=== PATIENT | female | born 1965 | race African-American/Black ===

== ENCOUNTER 2016-10-17 22:18 | Emergency (ER) | payer SELFPAY ==
[2016-10-17 22:51] VITALS: BP 115/79
--- NOTE | 2016-10-17 23:48 | Emergency Department Report ---
ED Back Pain/Injury HPI - General Chief Complaint: Back Pain/Injury Stated Complaint: BACK/LEG PAIN Time Seen by Provider: 10/17/16 23:29 Source: patient Limitations: No Limitations - History of Present Illness Initial Comments: 51-year-old female no significant past medical history presents with complaint of 2-3 weeks of lower back pain radiating down left buttock. Pain is intermittent pain currently as 6 out of 10 with with walking. Patient denies any trauma no nausea no vomiting. No abdominal pain. Denies any saddle paresthesias no loss of bladder or bowel continence. Denies any trauma whatsoever recently. Patient is fully ambulatory states that she is walking she feels pain radiating from her lower back and buttock. Denies any urinary symptoms whatsoever no fevers no chills no dysuria no hematuria MD Complaint: back pain Onset/Timin -: week(s) Place: home Radiation: buttocks, left leg Severity: moderate Severity scale (0 -10): 7 Quality: aching Consistency: intermittent Improves With: immobilization Worsens With: movement, walking Context: while lifting, turning/twisting - Related Data Previous Rx's Medication Instructions Recorded Last Taken Type Cyclobenzaprine [Flexeril] 10 mg PO TID PRN #15 tablet 10/18/16 Unknown Rx Naproxen [Naprosyn TAB] 500 mg PO BID PRN #30 tablet 10/18/16 Unknown Rx Allergies Allergy/AdvReac Type Severity Reaction Status Date / Time No Known Allergies Allergy Verified 02/11/16 21:54 ED Review of Systems ROS: Stated complaint: BACK/LEG PAIN Other details as noted in HPI Constitutional: denies: chills, fever Eyes: denies: eye pain, eye discharge, vision change ENT: denies: ear pain, throat pain Respiratory: denies: cough, shortness of breath, wheezing Cardiovascular: denies: chest pain, palpitations Endocrine: no symptoms reported Gastrointestinal: denies: abdominal pain, nausea, diarrhea Genitourinary: denies: urgency, dysuria, discharge Musculoskeletal: back pain. denies: joint swelling, arthralgia Skin: denies: rash, lesions Neurological: denies: headache, weakness, paresthesias Psychiatric: denies: anxiety, depression Hematological/Lymphatic: denies: easy bleeding, easy bruising ED Past Medical Hx - Past Medical History Previous Medical History?: Yes Additional medical history: Rheumatic Fever as a child. No cardiac hx - Surgical History Additional Surgical History: x 3, Tummy Tuck - Social History Smoking Status: Unknown if ever smoked - Medications Home Medications: Home Medications Medication Instructions Recorded Confirmed Last Taken Type Cyclobenzaprine [Flexeril] 10 mg PO TID PRN #15 tablet 10/18/16 Unknown Rx Naproxen [Naprosyn TAB] 500 mg PO BID PRN #30 tablet 10/18/16 Unknown Rx ED Physical Exam - General Limitations: No Limitations General appearance: alert, in no apparent distress - Head Head exam: Present: atraumatic, normocephalic - Eye Eye exam: Present: normal appearance, PERRL, EOMI - ENT ENT exam: Present: mucous membranes moist - Neck Neck exam: Present: normal inspection - Respiratory Respiratory exam: Present: normal lung sounds bilaterally. Absent: respiratory distress - Cardiovascular Cardiovascular Exam: Present: regular rate, normal rhythm. Absent: systolic murmur, diastolic murmur, rubs, gallop - GI/Abdominal GI/Abdominal exam: Present: soft, normal bowel sounds - Extremities Exam Extremities exam: Present: normal inspection - Back Exam Back exam: Present: normal inspection - Expanded Back Exam Expanded Back exam: Sciatic Notch Tenderness: Left, Positive Straight Leg Raise: Left ( at 30 degrees) - Neurological Exam Neurological exam: Present: alert, oriented X3, CN II-XII intact, normal gait - Expanded Neurological Exam Expanded Patient oriented to: Present: person, place, time Cerebellar function: Finger to Nose: Normal, Heel to Ibanez: Normal, Romberg: Normal Sensory exam: Upper Extremity Light Touch: Normal, Lower Extremity Light Touch: Normal Motor strength exam: RUE: 5, LUE: 5, RLE: 5, LLE: 5 DTR: knee (R): 3+, knee (L): 3+, ankle (R): 3+, ankle (L): 3+ Best Eye Response (Sushil): (4) open spontaneously Best Motor Response (Hartley): (6) obeys commands Best Verbal Response (Sushil): (5) oriented Sushil Total: 15 - Psychiatric Psychiatric exam: Present: normal affect, normal mood - Skin Skin exam: Present: warm, dry, intact, normal color. Absent: rash ED Course Vital Signs 10/17/16 22:45 Temperature 98.5 F Pulse Rate 78 Respiratory 18 Rate Blood Pressure 115/79 O2 Sat by Pulse 97 Oximetry ED Medical Decision Making - Medical Decision Making A/P: Sciatica left side 1-patient has no signs of cord compression is ambulatory strength 5 out of 5 lower extremities reflexes intact distal sensation is intact no saddle paresthesias no loss of bladder or bowel control. 2-x-ray shows no bony deformity 3-naproxen and Flexeril when necessary 4-follow-up with orthopedics and primary care Critical care attestation.: If time is entered above; I have spent that time in minutes in the direct care of this critically ill patient, excluding procedure time. ED Disposition Clinical Impression: Sciatica Qualifiers: Laterality: left Qualified Code(s): M54.32 - Sciatica, left side Disposition: DISCHARGED TO HOME OR SELFCARE Is pt being admited?: No Does the pt Need Aspirin: No Condition: Stable Instructions: Sciatica (ED), Lumbar Radiculopathy (ED), Piriformis Syndrome (ED ) Prescriptions: Cyclobenzaprine [Flexeril] 10 mg PO TID PRN #15 tablet PRN Reason: Muscle Spasm Naproxen [Naprosyn TAB] 500 mg PO BID PRN #30 tablet PRN Reason: Pain Referrals: PRIMARY CARE, [Primary Care Provider] - 3-5 Days SOPHY CANTU MD [Staff Physician] - 3-5 Days HELEN GARRIDO MD [Staff Physician] - 3-5 Days Forms: Accompanied Note, Work/School Release Form(ED) Time of Disposition: 01:55
--- NOTE | 2016-10-18 00:36 | XRay Report ---
FINAL REPORT PROCEDURE: XR SPINE LUMBOSACRAL 2-3V TECHNIQUE: Lumbar spine radiographs, including AP, lateral, and lumbosacral spot views. CPT 22657 HISTORY: lower back pain COMPARISON: No prior studies are available for comparison. FINDINGS: Alignment: Normal. Vertebral body heights/Disk spaces: Normal. Fracture(s): None. Facets: Normal. Bone mineralization: Normal. IMPRESSION: Normal Examination.
[2016-10-18] MEDS ORDERED: TORADOL IM ONE (01:09)
[2016-10-18 01:49] LABS: Bilirubin,Urine NEG (Negative); Blood,Urine SM (Negative); Ketones,Urine NEG (Negative); Leukocyte Esterase,Urine SM (Negative); Mucus,Urine FEW /HPF; Nitrite,Urine NEG (Negative); Protein,Urine <15 mg/dL mg/dL (Negative); Urobilinogen,Urine < 2.0 mg/dL (<2.0)
== END 2016-10-18 02:19 | disposition home or self-care (01) ==
LOC: ED 22:18
DX: M54.32 Sciatica, left side (principal)
CPT/HCPCS: 72100; 81001; 96372; 99283; J1885

== ENCOUNTER 2016-11-23 18:22 | Emergency (ER) | payer MEDICAID ==
[2016-11-24] MEDS ORDERED: TYLENOL PO ONE (01:06)
--- NOTE | 2016-11-24 02:23 | Emergency Department Report ---
HPI - General Chief Complaint: Eye Problems Time Seen by Provider: 11/24/16 01:54 - HPI HPI: This is a 51-year-old -[place] female presents to the emergency department with a complaint of a 2 day history of pain to the right eye and around the right eye, left-sided headache, and this morning the patient had a single episode. She says she was walking from her bedroom towards the bathroom when she passed out all of a sudden. She thinks she was unconscious for about 1 -2 minutes but was unable to get up and go about her business. She came in earlier by uber, but that went home due to a long wait here. She eventually drove herself back to be seen. She was trying to clean out her eye with salt water wash and then eyedrops. She denies any chest pain, slurred speech, vision change or any other neurological deficits. No recent travel or sick contacts at home. She does not have a primary care doctor or an bucket hooker. ED Past Medical Hx - Past Medical History Additional medical history: Rheumatic Fever as a child. No cardiac hx - Surgical History Additional Surgical History: x 3, Tummy Tuck - Social History Smoking Status: Never Smoker Substance Use Type: Alcohol - Medications Home Medications: Home Medications Medication Instructions Recorded Confirmed Last Taken Type Cyclobenzaprine [Flexeril] 10 mg PO TID PRN #15 tablet 10/18/16 Unknown Rx Naproxen [Naprosyn TAB] 500 mg PO BID PRN #30 tablet 10/18/16 Unknown Rx Tobramycin 0.3% [Tobrex] 1 drop OD Q6H #1 bottle 11/24/16 Unknown Rx ED Review of Systems ROS: Stated complaint: HEADACHES/EYE REDNESS/FAINTED/BACK PAIN Other details as noted in HPI Comment: All other systems reviewed and negative Constitutional: denies: chills, fever Eyes: eye pain. denies: eye discharge ENT: denies: ear pain, throat pain Respiratory: denies: cough, shortness of breath, wheezing Cardiovascular: syncope. denies: chest pain, palpitations Gastrointestinal: denies: abdominal pain, nausea, diarrhea Genitourinary: denies: urgency, dysuria, discharge Musculoskeletal: denies: back pain, joint swelling, arthralgia Skin: denies: rash, lesions Neurological: denies: headache, weakness, paresthesias Physical Exam - Physical Exam Vital Signs: Vital Signs 11/23/16 11/24/16 11/24/16 19:15 00:58 01:23 Temperature 98.4 F 98.1 F Pulse Rate 87 64 Respiratory 18 18 20 Rate Blood Pressure 126/76 121/89 Blood Pressure 126/76 [Right] O2 Sat by Pulse 99 Oximetry 11/24/16 02:11 Temperature Pulse Rate Respiratory 18 Rate Blood Pressure Blood Pressure [Right] O2 Sat by Pulse 99 Oximetry Physical Exam: GENERAL: The patient is well-developed well-nourished. HEENT: Normocephalic. Atraumatic. Extraocular motions are intact. Patient has moist mucous membranes. Pupils equal reactive to light bilaterally. There is some mild fatigable horizontal nystagmus. Visual acuity: Both eyes 20/15, OD 20/20, OS 20/20, NECK: Supple. Trachea is midline. CHEST/LUNGS: Clear to auscultation. There is no respiratory distress noted. HEART/CARDIOVASCULAR: Regular. There is no tachycardia. There is no gallop rub or murmur. ABDOMEN: Abdomen is soft, nontender. Patient has normal bowel sounds. There is no abdominal distention. SKIN: There is no rash. There is no edema. There is no diaphoresis. NEURO: The patient is awake, alert, and oriented. The patient is cooperative. The patient has no focal neurologic deficits. The patient has normal speech. Cranial nerves II through XII grossly intact. No dysmetria. No pronator drift. MUSCULOSKELETAL: There is no tenderness or deformity. There is no limitation range of motion. There is no evidence of acute injury. Muscle strength 5 out of 5 for upper and lower extremities bilaterally. ED Course Vital Signs 11/23/16 11/24/16 11/24/16 19:15 00:58 01:23 Temperature 98.4 F 98.1 F Pulse Rate 87 64 Respiratory 18 18 20 Rate Blood Pressure 126/76 121/89 Blood Pressure 126/76 [Right] O2 Sat by Pulse 99 Oximetry 11/24/16 02:11 Temperature Pulse Rate Respiratory 18 Rate Blood Pressure Blood Pressure [Right] O2 Sat by Pulse 99 Oximetry ED Medical Decision Making - Lab Data Result diagrams: 11/24/16 02:46 11/24/16 02:46 - Radiology Data Radiology results: report reviewed CT of the head does not show any acute process including no hemorrhage, mass, shift, diffuse edema or skull fracture. - Medical Decision Making 51-year-old female presents to the emergency department with a complaint of a 2 day history of some right eye discomfort, left-sided headache, and a episode of syncope this morning. The eye pain started off with her having concern for some redness around the eye but that has since resolved. She denies any vision change and actually on physical examination has perfect visual acuity. There are no focal, motor or sensory deficits and the radial nerves are intact. A CT of the head was done that did not show any bleed, shift, mass or any acute process. Her labs are unremarkable and do not show any etiology of her symptoms. Pupils were equal, reactive to light bilaterally. EKG did not show any signs of ST elevation CO, ischemia or dysrhythmia. Vital signs stable throughout her ED course. Patient was reevaluated multiple times over multiple hours and has been resting comfortably without any medication. There is been no further episodes of passing out and no seizure-like activity. For all these reasons the patient appears safe for discharge with this time. She was given referrals for primary care and ophthalmology. She'll be covered empirically with some Tobrex antibiotics eyedrops. She will return to the ER with any worsening of her symptoms, vision change, slurred speech, any neurological deficits, or any acute distress. She understands and agrees the plan. - Differential Diagnosis conjunctivitis, tension headache, migraine, orthostatic hypotension, vasova Critical Care Time: No Critical care attestation.: If time is entered above; I have spent that time in minutes in the direct care of this critically ill patient, excluding procedure time. ED Disposition Clinical Impression: Pain, eye, right Headache Qualifiers: Headache type: unspecified Headache chronicity pattern: episodic headache Intractability: not intractable Qualified Code(s): R51 - Headache Disposition: DC-01 TO HOME OR SELFCARE Is pt being admited?: No Condition: Stable Instructions: Acute Headache (ED), Eye Pain (ED) Additional Instructions: Please follow-up with an bucket hooker in the next 1-2 days. It is also important to follow with a primary care physician. Return to the emergency department with any worsening of her symptoms, vision change, intractable severe headache, any slurring of speech, any neurological deficits or any acute process. Prescriptions: Tobramycin 0.3% [Tobrex] 1 drop OD Q6H #1 bottle Referrals: PRIMARY CARE, [Primary Care Provider] - 3-5 Days CORA VELASQUEZ MD [Staff Physician] - 3-5 Days YOVANA GOMES MD [Staff Physician] - 3-5 Days MICKEY BARCLAY MD [Staff Physician] - 3-5 Days Time of Disposition: 04:14
--- NOTE | 2016-11-24 02:45 | Cat Scan Report ---
FINAL REPORT PROCEDURE: CT HEAD/BRAIN WO CON TECHNIQUE: Computerized tomography of the head was performed without contrast material. HISTORY: Syncope COMPARISON: No prior studies are available for comparison. FINDINGS: Skull and scalp: Normal. Paranasal sinuses: Normal. Ventricles and subarachnoid spaces: Normal. Cerebrum: No evidence of hemorrhage, acute infarction or mass . Cerebellum and brainstem: No evidence of hemorrhage, acute infarction or mass. Vasculature: Normal. Comments: None. IMPRESSION: Normal Examination
[2016-11-24 03:04] LABS: Basophils % (Auto) 0.6 % (0.0-1.8); Eosinophils % (Auto) 2.1 % (0.0-4.3); Hematocrit 34.8 % (30.3-42.9); Hemoglobin 11.3 gm/dl (10.1-14.3); Mean Corpuscular HGB Conc 32 % (30-34); Mean Corpuscular Hemoglobin 26 pg (28-32); Mean Corpuscular Volume 82 fl (79-97); Platelet Count 351 K/mm3 (140-440); Red Blood Count 4.27 M/mm3 (3.65-5.03); Red Cell Distribution Width 13.3 % (13.2-15.2)
[2016-11-24 03:25] LABS: Anion Gap 19 mmol/L; BUN/Creatinine Ratio 26.66; Blood Urea Nitrogen 16 mg/dL (7-17); Calcium 9.3 mg/dL (8.4-10.2); Carbon Dioxide 26 mmol/L (22-30); Chloride 101.3 mmol/L (98-107); Glucose 141 mg/dL (65-100); Potassium 4.4 mmol/L (3.6-5.0); Sodium 142 mmol/L (137-145)
[2016-11-24 04:40] VITALS: BP 105/68
== END 2016-11-24 04:38 | disposition home or self-care (01) ==
LOC: ED 18:22
DX: H57.11 Ocular pain, right eye (principal); R51 Headache
CPT/HCPCS: 36415; 70450; 80048; 84484; 85025; 93005; 93010; 99284

== ENCOUNTER 2018-01-26 19:13 | Emergency (ER) | payer MEDICAID ==
[2018-01-26 19:49] VITALS: BP 120/74
[2018-01-26] MEDS ORDERED: FLEXERIL PO ONE (20:58)
[2018-01-26] MEDS ORDERED: TORADOL IM ONE (20:58)
--- NOTE | 2018-01-26 21:59 | Emergency Department Report ---
ED General Adult HPI - General Chief complaint: Pain General Stated complaint: PAIN ALLOVER Time Seen by Provider: 01/26/18 20:56 Source: patient Mode of arrival: Ambulatory Limitations: No Limitations - History of Present Illness Initial comments: Patient is a 52-year-old Lebanese female who presents for right-sided neck s houlder and low back pain status post fall and elevator 1 week ago seen and treated by trauma center no fractures diagnosed with Brain shoulder sprain low back prescribed naproxen and Flexeril however was unable to get the medicine because of insurance concerns requesting pain medicine at this time is no numbness no tingling or paralysis. Neck and shoulder pain are 5/10 aching exacerbated by movement no back is 4/10. Exacerbated by bending or twisting Denies decrease or change in bowel or bladder function Onset/Timin -: week(s) Location: neck, back, upper extremity Radiation: back, extremity Severity scale (0 -10): 4 Consistency: constant Improves with: none Worsens with: movement Associated Symptoms: denies: confusion, chest pain, cough, diaphoresis, fever/ chills, headaches, loss of appetite, malaise, nausea/vomiting, rash, seizure, shortness of breath, syncope, weakness Treatments Prior to Arrival: none - Related Data Previous Rx's Medication Instructions Recorded Last Taken Type Cyclobenzaprine [Flexeril] 10 mg PO TID PRN #15 tablet 10/18/16 Unknown Rx Naproxen [Naprosyn TAB] 500 mg PO BID PRN #30 tablet 10/18/16 Unknown Rx Tobramycin 0.3% [Tobrex] 1 drop OD Q6H #1 bottle 11/24/16 Unknown Rx Cyclobenzaprine [Flexeril] 10 mg PO TID PRN #30 tablet 01/26/18 Unknown Rx Menthol/Camphor [[place] 1 applic TP TID PRN #1 tube 01/26/18 Unknown Rx Ointment] Naproxen [Naprosyn TAB] 500 mg PO BID #30 tablet 01/26/18 Unknown Rx Allergies Allergy/AdvReac Type Severity Reaction Status Date / Time No Known Allergies Allergy Verified 02/11/16 21:54 ED Review of Systems ROS: Stated complaint: PAIN ALLOVER Other details as noted in HPI Constitutional: denies: chills, fever Eyes: denies: eye pain, eye discharge, vision change ENT: denies: ear pain, throat pain Respiratory: denies: cough, shortness of breath, wheezing Cardiovascular: denies: chest pain, palpitations Endocrine: no symptoms reported Gastrointestinal: denies: abdominal pain, nausea, diarrhea Genitourinary: denies: urgency, dysuria, discharge Musculoskeletal: back pain. denies: joint swelling, arthralgia Skin: denies: rash, lesions Neurological: denies: headache, weakness, paresthesias Psychiatric: denies: anxiety, depression Hematological/Lymphatic: denies: easy bleeding, easy bruising ED Past Medical Hx - Past Medical History Additional medical history: Rheumatic Fever as a child. No cardiac hx - Surgical History Additional Surgical History: x 3, Tummy Tuck - Social History Smoking Status: Never Smoker Substance Use Type: Alcohol - Medications Home Medications: Home Medications Medication Instructions Recorded Confirmed Last Taken Type Cyclobenzaprine [Flexeril] 10 mg PO TID PRN #15 tablet 10/18/16 Unknown Rx Naproxen [Naprosyn TAB] 500 mg PO BID PRN #30 tablet 10/18/16 Unknown Rx Tobramycin 0.3% [Tobrex] 1 drop OD Q6H #1 bottle 11/24/16 Unknown Rx Cyclobenzaprine [Flexeril] 10 mg PO TID PRN #30 tablet 01/26/18 Unknown Rx Menthol/Camphor [[place] 1 applic TP TID PRN #1 tube 01/26/18 Unknown Rx Ointment] Naproxen [Naprosyn TAB] 500 mg PO BID #30 tablet 01/26/18 Unknown Rx ED Physical Exam - General Limitations: No Limitations General appearance: alert, in no apparent distress - Head Head exam: Present: atraumatic, normocephalic, normal inspection - Eye Eye exam: Present: normal appearance, PERRL, EOMI Pupils: Present: normal accommodation - ENT ENT exam: Present: normal exam, mucous membranes moist - Neck Neck exam: Present: tenderness, full ROM. Absent: lymphadenopathy, thyromegaly - Expanded Neck Exam Expanded Neck exam: Present: tenderness (right posterior lateral neck muscl pain rom intact including chin to chest bilat shoulders and full neck extension without restrication there is no ecchymosis swelling or deformity ). Absent: midline deformity, anterior neck swelling, thyroid mass, carotid bruit, tracheal deviation - Respiratory Respiratory exam: Present: normal lung sounds bilaterally. Absent: respiratory distress, wheezes, stridor, chest wall tenderness - Cardiovascular Cardiovascular Exam: Present: regular rate, normal rhythm, normal heart sounds. Absent: systolic murmur, diastolic murmur, rubs, gallop - GI/Abdominal GI/Abdominal exam: Present: soft, normal bowel sounds. Absent: distended, mass , hernia - Rectal Rectal exam: Present: deferred - Extremities Exam Extremities exam: Present: normal inspection, full ROM, tenderness, normal capillary refill. Absent: pedal edema, joint swelling, calf tenderness - Expanded Upper Extremity Exam Right Shoulder Exam: Present: normal inspection, tenderness, tenderness over AC joint (mild right should ac pain with deep palpation rom intact including shoulder drop and open manager valuation equal 5/5 ). Absent: swelling, abrasion, laceration, ecchymosis, deformity, crepidus, dislocation, erythema Upper Arm exam: Present: full ROM. Absent: tenderness Elbow exam: Present: normal inspection, full ROM. Absent: tenderness Forearm Wrist exam: Present: normal inspection, full ROM. Absent: tenderness Hand Wrist exam: Present: normal inspection, full ROM. Absent: tenderness, swelling, abrasion, laceration, ecchymosis Neuro motor exam: Present: wrist extension intact, thumb opposition intact, thumb IP flexion intact, thumb adduction intact, fingers 2-5 abduction intact Neurosensory exam: Present: 2-point discrimination, radial nerve intact, ulnar nerve intact, median nerve intact Vascular: Present: normal capillary refill, radial pulse, brachial pulse, ulnar pulse. Absent: vascular compromise, Pallo, pulse deficit radial art, pulse deficit ulnar art, pulse deficit brachial art - Back Exam Back exam: Present: normal inspection, full ROM, muscle spasm, paraspinal tenderness. Absent: tenderness, CVA tenderness (R), CVA tenderness (L), vertebral tenderness, rash noted - Expanded Back Exam Expanded Back exam: Absent: saddle anesthesia (is no posterior vertebral point tenderness is right mild paraspinus low-back tenderness to deep palpation) Back exam: Negative Straight Leg Raising: Right, Left - Neurological Exam Neurological exam: Present: alert, oriented X3, CN II-XII intact, normal gait, reflexes normal. Absent: motor sensory deficit - Psychiatric Psychiatric exam: Present: normal affect, normal mood - Skin Skin exam: Present: warm (Y), dry, intact, normal color. Absent: rash ED Course Vital Signs 01/26/18 19:42 Temperature 98.1 F Pulse Rate 72 Respiratory 18 Rate Blood Pressure 120/74 [Right] O2 Sat by Pulse 99 Oximetry ED Medical Decision Making - Radiology Data Radiology results: image reviewed No fracture no soft tissue abnormality noted on x-rays of C-spine and right shoulder or lumbar - Medical Decision Making This is musculoskeletal pain we'll prescribe NSAIDs and muscle relaxants moist heat therapy patient will follow with [facility] 2[facility]3 days pain is now 3/ 10 improved with medications given in ED patient verbalizes understanding and agreement with discharge plan patient will DC to home in stable condition at this time Critical care attestation.: If time is entered above; I have spent that time in minutes in the direct care of this critically ill patient, excluding procedure time. ED Disposition Clinical Impression: Musculoskeletal pain Cervical muscle strain Qualifiers: Encounter type: initial encounter Qualified Code(s): S16.1XXA - Strain of muscle, fascia and tendon at neck level, initial encounter Right shoulder strain Qualifiers: Encounter type: initial encounter Qualified Code(s): S46.911A - Strain of unspecified muscle, fascia and tendon at shoulder and upper arm level, right arm , initial encounter Low back strain Qualifiers: Encounter type: initial encounter Qualified Code(s): S39.012A - Strain of muscle, fascia and tendon of lower back, initial encounter Disposition: DC-01 TO HOME OR SELFCARE Is pt being admited?: No Does the pt Need Aspirin: No Condition: Good Instructions: Cervical Spine Strain (ED), Shoulder Sprain (ED), Low Back Strain (ED), Core Strengthening Exercises (GEN) Prescriptions: Cyclobenzaprine [Flexeril] 10 mg PO TID PRN #30 tablet PRN Reason: Muscle Spasm Menthol/Camphor [[place] Ointment] 1 applic TP TID PRN #1 tube PRN Reason: pain Naproxen [Naprosyn TAB] 500 mg PO BID #30 tablet Referrals: [facility] [Outside] - 3-5 Days Forms: Work/School Release Form(ED) Time of Disposition: 22:09
--- NOTE | 2018-01-26 22:52 | XRay Report ---
FINAL REPORT EXAM: XR SHOULDER 2+V RT HISTORY: hasoulder pain s/po fall TECHNIQUE: AP, Y, and oblique views of the right shoulder PRIORS: None. FINDINGS: There is no evidence of acute fracture or dislocation. Joint spaces are maintained and bony mineralization is normal. Soft tissues are unremarkable. IMPRESSION: No acute abnormality identified in the right shoulder.
--- NOTE | 2018-01-26 22:53 | XRay Report ---
FINAL REPORT EXAM: XR SPINE CERVICAL 2-3V HISTORY: neck pain s/p fall from distance TECHNIQUE: AP, lateral , swimmer's,, and odontoid views of the cervical spine PRIORS: None. FINDINGS: C7 is visualized on the swimmer's view. The vertebral body heights and disc spaces are well maintained. The alignment is normal. No prevertebral soft tissue swelling is seen. The odontoid is intact. IMPRESSION: Normal cervical spine.
--- NOTE | 2018-01-26 22:54 | XRay Report ---
FINAL REPORT EXAM: XR SPINE LUMBOSACRAL 2-3V HISTORY: fall with low back pain TECHNIQUE: AP, lateral and coned-down views of the lumbar spine PRIORS: X-ray L-spine 10/17/2016 FINDINGS: The vertebral body heights are well maintained. The mild disc space narrowing at L5-S1 is again noted. Other disc spaces are normal. The alignment is normal. No evidence for spondylolysis or spondylolisthesis is seen. Pedicles are intact bilaterally at all levels. The paraspinal soft tissues are unremarkable. IMPRESSION: Stable lumbar spine. Mild disc space narrowing L5-S1.
== END 2018-01-26 22:16 | disposition home or self-care (01) ==
LOC: ED 19:13
DX: S16.1XXA Strain of muscle, fascia and tendon at neck level, initial encounter (principal); S39.012A Strain of muscle, fascia and tendon of lower back, initial encounter; S46.911A Strain of unspecified muscle, fascia and tendon at shoulder and upper arm level, right arm, initial encounter; W19.XXXA Unspecified fall, initial encounter; Y93.89 Activity, other specified; Y99.8 Other external cause status; Y92.89 Other specified places as the place of occurrence of the external cause
CPT/HCPCS: 72040; 72100; 73030; 96372; 99283; J1885

== ENCOUNTER 2018-11-07 02:20 | Emergency (ER) | payer MEDICAID ==
[2018-11-07 03:05] LABS: Color,Urine Yellow (Yellow)
[2018-11-07 03:06] LABS: Bacteria,Urine 1+ /HPF (Negative); Bilirubin,Urine NEG (Negative); Blood,Urine NEG (Negative); Mucus,Urine FEW /HPF; Protein,Urine <15 mg/dL mg/dL (Negative); Urobilinogen,Urine < 2.0 mg/dL (<2.0)
[2018-11-07 03:11] LABS: Hematocrit 39.3 % (30.3-42.9); Mean Corpuscular HGB Conc 33 % (30-34); Mean Corpuscular Volume 83 fl (79-97); Platelet Count 355 K/mm3 (140-440); Red Blood Count 4.73 M/mm3 (3.65-5.03); Red Cell Distribution Width 13.7 % (13.2-15.2)
[2018-11-07 03:30] LABS: Alanine Aminotransferase 23 units/L (7-56); Albumin 4.2 g/dL (3.9-5); BUN/Creatinine Ratio 34; Blood Urea Nitrogen 24 mg/dL (7-17); Calcium 9.7 mg/dL (8.4-10.2); Hemolysis Index 7
[2018-11-07 05:42] LABS: Anisocytosis 1+; Band Neutrophils # (Manual) 0.1 K/mm3; Total Cells Counted 100
[2018-11-07 05:43] LABS: Platelet Estimate Consistent w Auto
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
--- NOTE | 2018-11-07 09:05 | Cat Scan Report ---
EXAM: CT ABDOMEN PELVIS WO CON HISTORY: pain TECHNIQUE: Spiral axial CT images are obtained through the abdomen and pelvis without the administrat ion of intravenous contrast. Additional coronal and sagittal reformatted images are reconstructed. DOSIMETRY: Total DLP 1325.36 mGycm; CTDI 22.78 mGy COMPARISON: None available. FINDINGS: GASTROINTESTINAL TRACT: Small hiatal hernia. Nonspecific, fluid-filled, nondilated stomach and small bowel loops within the abdomen and pelvis; possible gastroenteritis. Clinical correlation is advise d. Diffuse colonic diverticulosis, especially severe in the sigmoid region, without CT evidence for acute diverticulitis. No evidence for bowel herniation, bowel obstruction, or colitis is seen. Abunda nt fecal material is seen within the large bowel loops; nonspecific finding; rule out constipation. Status post appendectomy. GENITOURINARY SYSTEM: The kidneys are unremarkable. There is no ureteral calculus or stigmata of obst ructive uropathy. The urinary bladder is grossly unremarkable for a non-dedicated exam. CT ABDOMEN: The liver, spleen, pancreas, adrenal glands, gallbladder, aorta, and inferior vena cava a re within normal limits for a noncontrast CT scan. There is no intra-abdominal or retroperitoneal ly mphadenopathy, free fluid, or free air seen. No abdominal herniation is noted. CT PELVIS: Multilevel degenerative disease is seen in the lumbar spine with a chronic-appearing poste rior disc bulge/marginal osteophyte complex at L5/S1 (projecting 5.3 mm AP). The visualized bony stru ctures are within normal limits. The uterus and adnexa are within normal limits for a noncontrast CT scan. No pelvic sidewall or inguinal lymphadenopathy is seen. No inguinal herniation is noted. Trace amount of free fluid within the dependent right pelvis/cul-de-sac; DDX includes (but is not limited to) physiologic change and/or sequela of occult ovarian cyst leakage or rupture in the appropriate cl inical setting. Clinical correlation is advised. No free air is seen. LUNG BASES: The lung bases are clear. IMPRESSION: Nonspecific, fluid-filled, nondilated stomach and small bowel loops within the abdomen and pelvis; po ssible gastroenteritis. Clinical correlation is advised. Small hiatal hernia. Abundant fecal material is seen within the large bowel loops; nonspecific finding; rule out constipat ion. Diffuse colonic diverticulosis, especially severe in the sigmoid region, without CT evidence for acut e diverticulitis. No evidence for bowel herniation, bowel obstruction, or colitis. No evidence for renal stone disease or obstructive uropathy. Multilevel degenerative disease is seen in the lumbar spine with a chronic-appearing posterior disc b ulge/marginal osteophyte complex at L5/S1 (projecting 5.3 mm AP). Trace amount of free fluid within the dependent right pelvis/cul-de-sac; DDX includes (but is not eubanks ited to) physiologic change and/or sequela of occult ovarian cyst leakage or rupture in the appropria te clinical setting. Clinical correlation is advised. No free air, mass lesions, or lymphadenopathy seen. This document is electronically signed by Gurpreet Albright MD., Nov 07 2018 09:02:32 AM ET
[2018-11-07 10:20] VITALS: BP 130/82
== END 2018-11-07 10:19 | disposition home or self-care (01) ==
LOC: ED 02:20
DX: K52.9 Noninfective gastroenteritis and colitis, unspecified (principal)
CPT/HCPCS: 36415; 74176; 80053; 81001; 85007; 85025; 99284

== ENCOUNTER 2019-02-20 18:23 | Emergency (ER) | payer MEDICAID ==
--- NOTE | 2019-02-20 19:49 | Emergency Department Report ---
Blank Doc - Documentation Documentation: 53-year-old female that presents with upper abdominal pain. This initial assessment/diagnostic orders/clinical plan/treatment(s) is/are subject to change based on patient's health status, clinical progression and re- assessment by fellow clinical providers in the ED. Further treatment and workup at subsequent clinical providers discretion. Patient/guardians urged not to elope from the ED as their condition may be serious if not clinically assessed and managed. Initial orders include: 1- Patient sent to [facility] for further evaluation and treatment 2- labs 3- UA
[2019-02-20 19:50] VITALS: BP 143/73
[2019-02-20 20:27] LABS: Hematocrit 40.2 % (30.3-42.9); Hemoglobin 13.2 gm/dl (10.1-14.3); Mean Corpuscular HGB Conc 33 % (30-34); Mean Corpuscular Volume 84 fl (79-97); Platelet Count 371 K/mm3 (140-440); Red Blood Count 4.81 M/mm3 (3.65-5.03); Red Cell Distribution Width 13.5 % (13.2-15.2)
[2019-02-20 20:54] LABS: Alanine Aminotransferase 29 units/L (7-56); Albumin 4.7 g/dL (3.9-5); BUN/Creatinine Ratio 24; Blood Urea Nitrogen 17 mg/dL (7-17); Calcium 9.9 mg/dL (8.4-10.2); Hemolysis Index 22
[2019-02-20 21:52] LABS: Basophils % (Manual) 0 % (0.0-1.8); RBC Morphology Normal; Total Cells Counted 100
[2019-02-20 22:21] LABS: Bilirubin,Urine NEG (Negative); Blood,Urine NEG (Negative); Color,Urine Yellow (Yellow); Mucus,Urine FEW /HPF; Protein,Urine <15 mg/dL mg/dL (Negative); RBC,Urine < 1.0 /HPF (0.0-6.0); Urobilinogen,Urine < 2.0 mg/dL (<2.0)
[2019-02-20] MEDS ORDERED: ZOFRAN IV ONE (22:25)
[2019-02-20] MEDS ORDERED: ALUM-MAG HYDROX-SIMETH 200-200-20MG/5ML PO ONE (22:25)
[2019-02-20] MEDS ORDERED: LIDOCAINE VISCOUS 2% PO ONE (22:25)
[2019-02-20] MEDS ORDERED: PEPCID IV ONE (22:25)
[2019-02-20] MEDS ORDERED: MORPHINE IV ONE (22:25)
--- NOTE | 2019-02-20 23:07 | XRay Report ---
CHEST 2 VIEWS INDICATION: dyspnea. COMPARISON: 02/12/2016. FINDINGS: Support devices: None. Heart: Within normal limits. Lungs/Pleura: No acute air space or interstitial disease. No significant pleural effusion. IMPRESSION: No acute findings. Signer Name: David Garza MD Signed: 02/20/2019 11:03 PM Workstation Name: [id number]
--- NOTE | 2019-02-21 03:00 | Cat Scan Report ---
CT ABDOMEN AND PELVIS WITH CONTRAST INDICATION: abdominal pain - epigastric CONTRAST: 100 cc Omnipaque 300 IV COMPARISON: None available. All CT scans at this location are performed using CT dose reduction for ALARA by means of automated e xposure control. FINDINGS: Minimal bibasilar atelectatic changes are seen. No pneumoperitoneum is noted. Colonic diver ticulosis is seen without evidence of diverticulitis. Appendix is not visualized. Minimal hiatal nancy ia is seen. Gallbladder and bile ducts appear within normal limits. Pancreas shows no abnormalities. Cystic areas in the left renal sinus are thought more likely parapelvic cysts than dilated calyces th ough contrast is not seen in the calyceal systems at the time of this examination and differentiation is somewhat difficult. No urinary tract calculi are seen. The right renal collecting system is sligh tly prominent of unknown chronicity. No ureteral calculi or dilatation are seen. Bladder shows no abn ormalities. Only minimal free fluid is seen. No focal inflammatory changes are seen. No evidence of bowel obstruc tion is noted. Minimal umbilical hernia is seen. IMPRESSION: No definite acute abnormalities are seen. Cystic change in the left renal sinus is favore d to represent parapelvic cysts rather than calyceal dilatation as discussed and no obstructing calcu aly or other lesion is seen. Signer Name: Kehinde Pérez MD Signed: 02/21/2019 2:55 AM Workstation Name: [id number]
--- NOTE | 2019-02-21 03:31 | Emergency Department Report ---
ED Abdominal Pain HPI - General Chief Complaint: Abdominal Pain Stated Complaint: UPPER ABD PAIN Time Seen by Provider: 02/20/19 19:48 Source: patient Mode of arrival: Ambulatory Limitations: No Limitations - History of Present Illness Initial Comments: Patient is a 53-year-old white female with no past medical history presents to the ED with complaint of acute onset persistent epigastric pain that radiates to the left upper quadrant and substernal chest last 1 month after she accidentally hit her upper abdomen with a shopping cart at the grocery store a month ago. Patient states that the pain has been persistent and that she has had appointments with GI physicians was evaluated with no abnormalities. Patient states that she does not take any medication at this time for the pain. Patient states that food makes the pain worse whenever she eats. Patient also complains of nausea and states that the frequency of bowel movement is also decreased. Patient denies fever, chills, vomiting, cough, shortness of breath, dysuria, urinary frequency and urgency, hematemesis, hematochezia, hematuria, dizziness, neck pain or fall. MD Complaint: abdominal pain -: Gradual, month(s) (1) Location: epigastric Radiation: epigastric, chest Migration to: no migration Severity: moderate Severity scale (0 -10): 5 Quality: aching, sharp Consistency: constant Improves With: nothing Worsens With: eating, movement Context: recent injury (upper abdomen with a shopping cart) Associated Symptoms: denies other symptoms, nausea. denies: vomiting, diarrhea, fever, chills, dysuria, hematemesis, hematochezia, melena, hematuria, anorexia, syncope, other - Related Data Previous Rx's Medication Instructions Recorded Last Taken Type Cyclobenzaprine [Flexeril] 10 mg PO TID PRN #15 tablet 10/18/16 Unknown Rx Naproxen [Naprosyn TAB] 500 mg PO BID PRN #30 tablet 10/18/16 Unknown Rx Tobramycin 0.3% [Tobrex] 1 drop OD Q6H #1 bottle 11/24/16 Unknown Rx Cyclobenzaprine [Flexeril] 10 mg PO TID PRN #30 tablet 01/26/18 Unknown Rx Menthol/Camphor [[place] 1 applic TP TID PRN #1 tube 01/26/18 Unknown Rx Ointment] Naproxen [Naprosyn TAB] 500 mg PO BID #30 tablet 01/26/18 Unknown Rx Metoclopramide [Reglan] 10 mg PO TID PRN #30 tab 05/21/18 Unknown Rx diphenhydrAMINE [Benadryl CAP] 25 mg PO Q8HR PRN #30 capsule 05/21/18 Unknown Rx Dicyclomine [Bentyl] 10 mg PO TID #30 capsule 11/07/18 Unknown Rx Dicyclomine [Bentyl] 20 mg PO Q6H PRN #30 tablet 02/21/19 Unknown Rx Ondansetron [Zofran Odt] 4 mg PO Q6HR PRN #15 tab.rapdis 02/21/19 Unknown Rx Sucralfate [Carafate] 10 ml PO Q6HR #150 ml 02/21/19 Unknown Rx raNITIdine HCl [Zantac] 150 mg PO Q12H #30 tablet 02/21/19 Unknown Rx traMADol [Ultram 50 MG tab] 50 mg PO Q6HR PRN #12 tablet 02/21/19 Unknown Rx Allergies Allergy/AdvReac Type Severity Reaction Status Date / Time No Known Allergies Allergy Verified 02/11/16 21:54 ED Review of Systems ROS: Stated complaint: UPPER ABD PAIN Other details as noted in HPI Constitutional: denies: chills, fever Eyes: denies: eye pain, eye discharge, vision change ENT: denies: ear pain, throat pain Respiratory: denies: cough, shortness of breath, wheezing Cardiovascular: chest pain (chest wall pain). denies: palpitations Endocrine: no symptoms reported Gastrointestinal: abdominal pain (epigastric), nausea, vomiting. denies: diarrhea Genitourinary: denies: urgency, dysuria, discharge Musculoskeletal: denies: back pain, joint swelling, arthralgia Skin: denies: rash, lesions Neurological: denies: headache, weakness, paresthesias Psychiatric: denies: anxiety, depression Hematological/Lymphatic: denies: easy bleeding, easy bruising ED Past Medical Hx - Past Medical History Additional medical history: Rheumatic Fever as a child. No cardiac hx - Surgical History Additional Surgical History: x 3, Tummy Tuck - Social History Smoking Status: Never Smoker Substance Use Type: None - Medications Home Medications: Home Medications Medication Instructions Recorded Confirmed Last Taken Type Cyclobenzaprine [Flexeril] 10 mg PO TID PRN #15 tablet 10/18/16 Unknown Rx Naproxen [Naprosyn TAB] 500 mg PO BID PRN #30 tablet 10/18/16 Unknown Rx Tobramycin 0.3% [Tobrex] 1 drop OD Q6H #1 bottle 11/24/16 Unknown Rx Cyclobenzaprine [Flexeril] 10 mg PO TID PRN #30 tablet 01/26/18 Unknown Rx Menthol/Camphor [[place] 1 applic TP TID PRN #1 tube 01/26/18 Unknown Rx Ointment] Naproxen [Naprosyn TAB] 500 mg PO BID #30 tablet 01/26/18 Unknown Rx Metoclopramide [Reglan] 10 mg PO TID PRN #30 tab 05/21/18 Unknown Rx diphenhydrAMINE [Benadryl CAP] 25 mg PO Q8HR PRN #30 capsule 05/21/18 Unknown Rx Dicyclomine [Bentyl] 10 mg PO TID #30 capsule 11/07/18 Unknown Rx Dicyclomine [Bentyl] 20 mg PO Q6H PRN #30 tablet 02/21/19 Unknown Rx Ondansetron [Zofran Odt] 4 mg PO Q6HR PRN #15 tab.rapdis 02/21/19 Unknown Rx Sucralfate [Carafate] 10 ml PO Q6HR #150 ml 02/21/19 Unknown Rx raNITIdine HCl [Zantac] 150 mg PO Q12H #30 tablet 02/21/19 Unknown Rx traMADol [Ultram 50 MG tab] 50 mg PO Q6HR PRN #12 tablet 02/21/19 Unknown Rx ED Physical Exam - General Limitations: No Limitations General appearance: alert, in no apparent distress - Head Head exam: Present: atraumatic, normocephalic, normal inspection - Eye Eye exam: Present: normal appearance, PERRL, EOMI Pupils: Present: normal accommodation - ENT ENT exam: Present: normal exam, normal orophraynx, mucous membranes moist, TM's normal bilaterally, normal external ear exam - Neck Neck exam: Present: normal inspection, full ROM - Respiratory Respiratory exam: Present: normal lung sounds bilaterally, chest wall tenderness (Palpable anterior chest wall tenderness). Absent: respiratory distress, wheezes, rales, rhonchi, accessory muscle use, decreased breath sounds - Cardiovascular Cardiovascular Exam: Present: regular rate, normal rhythm, normal heart sounds. Absent: systolic murmur, diastolic murmur, rubs, gallop - GI/Abdominal GI/Abdominal exam: Present: soft, tenderness (Severe palpable epigastric tenderness), normal bowel sounds. Absent: guarding, rebound, rigid, hyperactive bowel sounds, hypoactive bowel sounds - Extremities Exam Extremities exam: Present: normal inspection, full ROM, normal capillary refill - Back Exam Back exam: Present: normal inspection, full ROM. Absent: tenderness, CVA tenderness (R), CVA tenderness (L), muscle spasm, paraspinal tenderness, vertebral tenderness - Neurological Exam Neurological exam: Present: alert, oriented X3, CN II-XII intact, normal gait, reflexes normal - Psychiatric Psychiatric exam: Present: normal affect, normal mood - Skin Skin exam: Present: warm, dry, intact, normal color. Absent: rash ED Course Vital Signs 02/20/19 02/21/19 19:48 03:55 Temperature 98.2 F Pulse Rate 68 64 Respiratory 12 16 Rate Blood Pressure 143/73 O2 Sat by Pulse 99 100 Oximetry - Reevaluation(s) Reevaluation #1: 02/23/19 06:22 This is a 53-year-old white female who presented to the ED with persistent epigastric pain that radiates to the substernal chest area after a shopping cart hit her on the chest and upper abdomen month ago. In the ED, patient is alert and oriented 3 and is not in distress with normal vital signs. Lab test results were reviewed and are unremarkable and non-actionable. Chest x-ray shows no acute cardiopulmonary abnormalities. Abdomen pelvis CT scan with cont rast shows no acute abnormalities. Patient was treated for pain in the ED and on reevaluation, patient's pain is well controlled with medications including antacids. Patient was discharged home on pain medications, antiemetics and antacids and was advised to follow-up with her primary care physician in 5-7 days for reevaluation or return to the ED immediately if symptoms get worse. 02/23/19 06:26 ED Medical Decision Making - Lab Data Result diagrams: 02/20/19 20:04 02/20/19 20:04 - Radiology Data Radiology results: report reviewed, image reviewed Findings [facility] [address] [place] [address] Cat Scan Report Signed Patient: VANI BUCIO MR# : [id number] : 1965 Acct:[id number] Age/Sex: 53 / F ADM Date: 02/20/19 Loc: ED Attending Dr: Ordering Physician: IGNACIO ADAMS Date of Service: 02/20/19 Procedure(s): CT abdomen pelvis w con Accession Number(s): [id number] cc: IGNACIO ADAMS CT ABDOMEN AND PELVIS WITH CONTRAST INDICATION: abdominal pain - epigastric CONTRAST: 100 cc Omnipaque 300 IV COMPARISON: None available. All CT scans at this location are performed using CT dose reduction for ALARA by means of automated exposure control. FINDINGS: Minimal bibasilar atelectatic changes are seen. No pneumoperitoneum is noted. Colonic diverticulosis is seen without evidence of diverticulitis. Appendix is not visualized. Minimal hiatal hernia is seen. Gallbladder and bile ducts appear within normal limits. Pancreas shows no abnormalities. Cystic areas in the left renal sinus are thought more likely parapelvic cysts than dilated calyces though contrast is not seen in the calyceal systems at the time of this examination and differentiation is somewhat difficult. No urinary tract calculi are seen. The right renal collecting system is slightly prominent of unknown chronicity. No ureteral calculi or dilatation are seen. Bladder shows no abnormalities. Only minimal free fluid is seen. No focal inflammatory changes are seen. No evidence of bowel obstruction is noted. Minimal umbilical hernia is seen. IMPRESSION: No definite acute abnormalities are seen. Cystic change in the left renal sinus is favored to represent parapelvic cysts rather than calyceal dilatation as discussed and no obstructing calculus or other lesion is seen. Signer Name: Kehinde Pérez MD Signed: 02/21/2019 2:55 AM Workstation Name: [id number] Transcribed By: SILVANO Dictated By: Kehinde Pérez MD Electronically Authenticated By: Kehinde Pérez MD Signed Date/Time: 02/21/19 0255 Findings [facility] [address] [place] [address] XRay Report Signed Patient: VANI BUCIO MR# : [id number] : 1965 Acct:[id number] Age/Sex: 53 / F ADM Date: 02/20/19 Loc: ED Attending Dr: Ordering Physician: IGNACIO ADAMS Date of Service: 02/20/19 Procedure(s): XR chest routine 2V Accession Number(s): [id number] cc: IGNACIO ADAMS Fluoro Time In Minutes: CHEST 2 VIEWS INDICATION: dyspnea. COMPARISON: 02/12/2016. FINDINGS: Support devices: None. Heart: Within normal limits. Lungs/Pleura: No acute air space or interstitial disease. No significant pleural effusion. IMPRESSION: No acute findings. Signer Name: David Garza MD Signed: 02/20/2019 11:03 PM Workstation Name: [id number] Transcribed By: ES Dictated By: David Garza MD Electronically Authenticated By: David Garza MD Signed Date/Time: 02/20/19 2250 - Medical Decision Making This is a 53-year-old white female who presented to the ED with persistent epigastric pain that radiates to the substernal chest area after a shopping cart hit her on the chest and upper abdomen month ago. In the ED, patient is alert and oriented 3 and is not in distress with normal vital signs. Lab test results were reviewed and are unremarkable and non-actionable. Chest x-ray shows no acute cardiopulmonary abnormalities. Abdomen pelvis CT scan with contrast shows no acute abnormalities. Patient was treated for pain in the ED and on reevaluation, patient's pain is well controlled with medications including antacids. Patient was discharged home on pain medications, antiemetics and antacids and was advised to follow-up with her primary care physician in 5-7 days for reevaluation or return to the ED immediately if symptoms get worse. - Differential Diagnosis GERD; Hiatal Hernia; ACS; Gallstones; Acute UTI; Gastritis Critical care attestation.: If time is entered above; I have spent that time in minutes in the direct care of this critically ill patient, excluding procedure time. ED Disposition Clinical Impression: Abdominal pain, acute, epigastric, Hiatal hernia GERD (gastroesophageal reflux disease) Qualifiers: Esophagitis presence: without esophagitis Qualified Code(s): K21.9 - Gastro- esophageal reflux disease without esophagitis Disposition: TO HOME OR SELFCARE Is pt being admited?: No Does the pt Need Aspirin: No Condition: Stable Instructions: Hiatal Hernia (ED), Gastroesophageal Reflux Disease (ED), Abdominal Pain (ED) Additional Instructions: Take medications with food, drink plenty of fluids and follow-up with your primary care physician in 5-7 days for reevaluation. Return to the ED immediately if symptoms get worse. Prescriptions: Dicyclomine [Bentyl] 20 mg PO Q6H PRN #30 tablet PRN Reason: Pain , Severe (7-10) Sucralfate [Carafate] 10 ml PO Q6HR #150 ml traMADol [Ultram 50 MG tab] 50 mg PO Q6HR PRN #12 tablet PRN Reason: Headache raNITIdine HCl [Zantac] 150 mg PO Q12H #30 tablet Ondansetron [Zofran Odt] 4 mg PO Q6HR PRN #15 tab.rapdis PRN Reason: Nausea Referrals: DELPHINE DARBY MD [Primary Care Provider] - 3-5 Days Time of Disposition: 03:31 Print Language: ARMENIAN
== END 2019-02-21 03:55 | disposition home or self-care (01) ==
LOC: ED 18:23
DX: K21.9 Gastro-esophageal reflux disease without esophagitis (principal); K44.9 Diaphragmatic hernia without obstruction or gangrene; Z79.899 Other long term (current) drug therapy
CPT/HCPCS: 36415; 71046; 74177; 80053; 81001; 83690; 84484; 85007; 85025; 96374; 96375; 99285; J2270; J2405; Q9967

== ENCOUNTER 2019-05-18 16:37 | Emergency (ER) | payer MEDICAID ==
--- NOTE | 2019-05-18 16:52 | Emergency Department Report ---
Blank Doc - Documentation Documentation: 53-year-old female that presents with abdominal pain and nausea. This initial assessment/diagnostic orders/clinical plan/treatment(s) is/are subject to change based on patient's health status, clinical progression and re- assessment by fellow clinical providers in the ED. Further treatment and workup at subsequent clinical providers discretion. Patient/guardians urged not to elope from the ED as their condition may be serious if not clinically assessed and managed. Initial orders include: 1- Patient sent to [facility] for further evaluation and treatment 2- labs 3- UA
[2019-05-18 17:21] LABS: Bilirubin,Urine NEG (Negative); Blood,Urine SM (Negative); Color,Urine Yellow (Yellow); Mucus,Urine 2+ /HPF; Protein,Urine <15 mg/dL mg/dL (Negative); Urobilinogen,Urine < 2.0 mg/dL (<2.0)
[2019-05-18 17:43] LABS: Basophils % (Auto) 0.7 % (0.0-1.8); Eosinophils # (Auto) 0.1 K/mm3 (0.0-0.4); Eosinophils % (Auto) 1.6 % (0.0-4.3); Hematocrit 40.9 % (30.3-42.9); Hemoglobin 13.6 gm/dl (10.1-14.3); Lymphocytes # (Auto) 2.1 K/mm3 (1.2-5.4); Lymphocytes % (Auto) 54.3 % (13.4-35.0); Mean Corpuscular HGB Conc 33 % (30-34); Mean Corpuscular Volume 83 fl (79-97); Monocytes # (Auto) 0.2 K/mm3 (0.0-0.8); Monocytes % (Auto) 5.8 % (0.0-7.3); Platelet Count 393 K/mm3 (140-440); Red Blood Count 4.94 M/mm3 (3.65-5.03); Red Cell Distribution Width 13.3 % (13.2-15.2)
[2019-05-18 18:03] LABS: Alanine Aminotransferase 29 units/L (7-56); Albumin 4.5 g/dL (3.9-5); BUN/Creatinine Ratio 27; Blood Urea Nitrogen 16 mg/dL (7-17); Calcium 9.5 mg/dL (8.4-10.2); Hemolysis Index 6
[2019-05-18] MEDS ORDERED: ASPIRIN 325 MG TAB PO ONE (18:44)
[2019-05-18] MEDS ORDERED: ONDANSETRON 4 MG/2 ML INJ IV ONE (18:45)
[2019-05-18] MEDS ORDERED: ALUM-MAG HYDROXIDE-SIMETHICONE 200-200-20MG/5ML ORAL LIQD 30 ML PO ONE (18:45)
[2019-05-18] MEDS ORDERED: LIDOCAINE VISCOUS 2% 15 ML ORAL LIQD PO ONE (18:45)
--- NOTE | 2019-05-18 19:53 | Cat Scan Report ---
CT ABDOMEN AND PELVIS WITH CONTRAST INDICATION / CLINICAL INFORMATION: epigastric pain. TECHNIQUE: Axial CT images were obtained through the abdomen and pelvis after IV contrast. All CT scans at this location are performed using CT dose reduction for ALARA by means of automated exposure control. COMPARISON: None available. FINDINGS: LOWER CHEST: No significant abnormality. Moderate size hiatal hernia is present. LIVER: No significant abnormality. GALLBLADDER: No significant abnormality. BILE DUCTS: No significant abnormality. PANCREAS: No significant abnormality. SPLEEN: No significant abnormality. ADRENALS: No significant abnormality. RIGHT KIDNEY and URETER: No significant abnormality. LEFT KIDNEY and URETER: No significant abnormality. STOMACH and SMALL BOWEL: No significant abnormality. COLON: Extensive diverticulosis of the descending colon and sigmoid colon without evidence of diverti culitis APPENDIX: Not identified PERITONEUM: No free fluid. No free air. No fluid collection. LYMPH NODES: No significant adenopathy. AORTA and ARTERIES: No significant abnormality. IVC and VEINS: No significant abnormality. URINARY BLADDER: No significant abnormality. REPRODUCTIVE ORGANS: No significant abnormality. ADDITIONAL FINDINGS: None. SKELETAL SYSTEM: No significant abnormality. IMPRESSION: 1. Hiatal hernia 2. Diverticulosis of the descending colon and sigmoid colon without convincing evidence of diverticul itis Signer Name: Fabricio Renee MD Signed: 05/18/2019 7:48 PM Workstation Name: [email or web address]
[2019-05-18 21:27] VITALS: BP 131/68
--- NOTE | 2019-05-18 22:42 | Emergency Department Report ---
ED Abdominal Pain HPI - General Chief Complaint: Abdominal Pain Stated Complaint: STOMACH PAIN Time Seen by Provider: 05/18/19 16:51 Source: patient Mode of arrival: Ambulatory Limitations: No Limitations - History of Present Illness Initial Comments: Patient is a 53-year-old white female with a history of chronic low back pain who presents to the ED with persistent epigastric pain with nausea and vomiting and lack of appetite for the last 2 days. Patient states that her epigastric pain has been ongoing for over 3 months after a shopping cart at the grocery store locked on her and hit her on the epigastric area. Patient has previously been evaluated for this same pain about 3 months ago and all tests were unremarkable. Patient states that in the last 2 days epigastric pain has worsened as well as nausea and vomiting and she has not been able to eat anything because of nausea and vomiting as well as epigastric pain. Patient states that the GI physician group that she was referred to do her last ED visit was unable to give her any appointment because of the type of medical insurance she has which is not acceptable to most of the specialists. Patient states that after is that she has not been able to follow-up with anyone apart from her primary care physician was been writing Pain medications. Patient denies chest pain, shortness of breath, fever, chills, diarrhea, dizziness, syncope, palpitations, dysuria, hematemesis, hematochezia, hemoptysis or hematuria. MD Complaint: abdominal pain, other (nausea and vomiting) -: Sudden, days(s) (2) Location: epigastric Radiation: epigastric Migration to: no migration Severity: severe Severity scale (0 -10): 7 Quality: aching, sharp Consistency: constant Improves With: nothing Worsens With: eating, vomiting, movement Context: recent injury (epigastric trauma by a shopping cart) Associated Symptoms: denies other symptoms, nausea, vomiting, anorexia. denies: diarrhea, fever, chills, constipation, dysuria, hematemesis, hematochezia, melena, hematuria, syncope, other - Related Data Previous Rx's Medication Instructions Recorded Last Taken Type Cyclobenzaprine [Flexeril] 10 mg PO TID PRN #15 tablet 10/18/16 Unknown Rx Naproxen [Naprosyn TAB] 500 mg PO BID PRN #30 tablet 10/18/16 Unknown Rx Tobramycin 0.3% [Tobrex] 1 drop OD Q6H #1 bottle 11/24/16 Unknown Rx Cyclobenzaprine [Flexeril] 10 mg PO TID PRN #30 tablet 01/26/18 Unknown Rx Menthol/Camphor [[place] 1 applic TP TID PRN #1 tube 01/26/18 Unknown Rx Ointment] Naproxen [Naprosyn TAB] 500 mg PO BID #30 tablet 01/26/18 Unknown Rx Metoclopramide [Reglan] 10 mg PO TID PRN #30 tab 05/21/18 Unknown Rx diphenhydrAMINE [Benadryl CAP] 25 mg PO Q8HR PRN #30 capsule 05/21/18 Unknown Rx Dicyclomine [Bentyl] 10 mg PO TID #30 capsule 11/07/18 Unknown Rx Ondansetron [Zofran Odt] 4 mg PO Q6HR PRN #15 tab.rapdis 02/21/19 Unknown Rx raNITIdine HCl [Zantac] 150 mg PO Q12H #30 tablet 02/21/19 Unknown Rx Dicyclomine [Bentyl] 20 mg PO Q6H PRN #30 tablet 05/18/19 Unknown Rx Famotidine [Pepcid] 20 mg PO Q12H #60 tablet 05/18/19 Unknown Rx Ondansetron [Zofran ODT TAB] 8 mg PO Q8HR PRN #30 tab.rapdis 05/18/19 Unknown Rx Sucralfate [Carafate] 10 ml PO Q6HR #150 ml 05/18/19 Unknown Rx traMADoL [Ultram 50 MG tab] 50 mg PO Q6HR PRN #12 tablet 05/18/19 Unknown Rx Allergies Allergy/AdvReac Type Severity Reaction Status Date / Time No Known Allergies Allergy Verified 02/11/16 21:54 ED Review of Systems ROS: Stated complaint: STOMACH PAIN Other details as noted in HPI Constitutional: denies: chills, fever Eyes: denies: eye pain, eye discharge, vision change ENT: denies: ear pain, throat pain Respiratory: denies: cough, shortness of breath, wheezing Cardiovascular: denies: chest pain, palpitations Endocrine: no symptoms reported Gastrointestinal: abdominal pain, nausea, vomiting. denies: diarrhea Genitourinary: denies: urgency, dysuria, discharge Musculoskeletal: denies: back pain, joint swelling, arthralgia Skin: denies: rash, lesions Neurological: denies: headache, weakness, paresthesias Psychiatric: denies: anxiety, depression Hematological/Lymphatic: denies: easy bleeding, easy bruising ED Past Medical Hx - Past Medical History Previous Medical History?: Yes Additional medical history: Rheumatic Fever as a child. No cardiac hx - Surgical History Past Surgical History?: Yes Additional Surgical History: x 3, Tummy Tuck - Social History Smoking Status: Never Smoker Substance Use Type: Alcohol - Medications Home Medications: Home Medications Medication Instructions Recorded Confirmed Last Taken Type Cyclobenzaprine [Flexeril] 10 mg PO TID PRN #15 tablet 10/18/16 Unknown Rx Naproxen [Naprosyn TAB] 500 mg PO BID PRN #30 tablet 10/18/16 Unknown Rx Tobramycin 0.3% [Tobrex] 1 drop OD Q6H #1 bottle 11/24/16 Unknown Rx Cyclobenzaprine [Flexeril] 10 mg PO TID PRN #30 tablet 01/26/18 Unknown Rx Menthol/Camphor [[place] 1 applic TP TID PRN #1 tube 01/26/18 Unknown Rx Ointment] Naproxen [Naprosyn TAB] 500 mg PO BID #30 tablet 01/26/18 Unknown Rx Metoclopramide [Reglan] 10 mg PO TID PRN #30 tab 05/21/18 Unknown Rx diphenhydrAMINE [Benadryl CAP] 25 mg PO Q8HR PRN #30 capsule 05/21/18 Unknown Rx Dicyclomine [Bentyl] 10 mg PO TID #30 capsule 11/07/18 Unknown Rx Ondansetron [Zofran Odt] 4 mg PO Q6HR PRN #15 tab.rapdis 02/21/19 Unknown Rx raNITIdine HCl [Zantac] 150 mg PO Q12H #30 tablet 02/21/19 Unknown Rx Dicyclomine [Bentyl] 20 mg PO Q6H PRN #30 tablet 05/18/19 Unknown Rx Famotidine [Pepcid] 20 mg PO Q12H #60 tablet 05/18/19 Unknown Rx Ondansetron [Zofran ODT TAB] 8 mg PO Q8HR PRN #30 tab.rapdis 05/18/19 Unknown Rx Sucralfate [Carafate] 10 ml PO Q6HR #150 ml 05/18/19 Unknown Rx traMADoL [Ultram 50 MG tab] 50 mg PO Q6HR PRN #12 tablet 05/18/19 Unknown Rx ED Physical Exam - General Limitations: No Limitations General appearance: alert, in no apparent distress - Head Head exam: Present: atraumatic, normocephalic, normal inspection - Eye Eye exam: Present: normal appearance, PERRL, EOMI Pupils: Present: normal accommodation - ENT ENT exam: Present: normal exam, normal orophraynx, mucous membranes moist, TM's normal bilaterally, normal external ear exam - Neck Neck exam: Present: normal inspection, full ROM - Respiratory Respiratory exam: Present: normal lung sounds bilaterally. Absent: respiratory distress, wheezes, rales, chest wall tenderness, decreased breath sounds, prolonged expiratory - Cardiovascular Cardiovascular Exam: Present: regular rate, normal rhythm, normal heart sounds. Absent: systolic murmur, diastolic murmur, rubs, gallop - GI/Abdominal GI/Abdominal exam: Present: soft, tenderness (Palpable epigastric tenderness with no guarding or rebound), normal bowel sounds. Absent: distended, guarding, rebound, hyperactive bowel sounds, hypoactive bowel sounds, organomegaly - Extremities Exam Extremities exam: Present: normal inspection, full ROM, normal capillary refill - Back Exam Back exam: Present: normal inspection, full ROM. Absent: muscle spasm, paraspinal tenderness - Neurological Exam Neurological exam: Present: alert, oriented X3, CN II-XII intact, normal gait - Psychiatric Psychiatric exam: Present: normal affect, normal mood - Skin Skin exam: Present: warm, dry, intact, normal color. Absent: rash ED Course Vital Signs 05/18/19 05/18/19 16:51 21:26 Temperature 97.6 F 98.2 F Pulse Rate 84 76 Respiratory 18 18 Rate Blood Pressure 119/66 Blood Pressure 131/68 [Right] O2 Sat by Pulse 98 Oximetry ED Medical Decision Making - Lab Data Result diagrams: 05/18/19 17:23 05/18/19 17:23 - EKG Data EKG shows normal: sinus rhythm - EKG Data Interpretation: normal EKG 05/18/19 22:50 EKG shows normal sinus rhythm with a ventricular rate of [address] or T- wave abnormalities. - Radiology Data Radiology results: report reviewed, image reviewed Findings [facility] [address] [place] [address] Cat Scan Report Signed Patient: VANI BUCIO MR# : [id number] : 1965 Acct:[id number] Age/Sex: 53 / F ADM Date: 05/18/19 Loc: ED Attending Dr: Ordering Physician: IGNACIO ADAMS Date of Service: 05/18/19 Procedure(s): CT abdomen pelvis w con Accession Number(s): [id number] cc: IGNACIO ADAMS CT ABDOMEN AND PELVIS WITH CONTRAST INDICATION / CLINICAL INFORMATION: epigastric pain. TECHNIQUE: Axial CT images were obtained through the abdomen and pelvis after IV contrast. All CT scans at this location are performed using CT dose reduction for ALARA by means of automated exposure control. COMPARISON: None available. FINDINGS: LOWER CHEST: No significant abnormality. Moderate size hiatal hernia is present. LIVER: No significant abnormality. GALLBLADDER: No significant abnormality. BILE DUCTS: No significant abnormality. PANCREAS: No significant abnormality. SPLEEN: No significant abnormality. ADRENALS: No significant abnormality. RIGHT KIDNEY and URETER: No significant abnormality. LEFT KIDNEY and URETER: No significant abnormality. STOMACH and SMALL BOWEL: No significant abnormality. COLON: Extensive diverticulosis of the descending colon and sigmoid colon without evidence of diverticulitis APPENDIX: Not identified PERITONEUM: No free fluid. No free air. No fluid collection. LYMPH NODES: No significant adenopathy. AORTA and ARTERIES: No significant abnormality. IVC and VEINS: No significant abnormality. URINARY BLADDER: No significant abnormality. REPRODUCTIVE ORGANS: No significant abnormality. ADDITIONAL FINDINGS: None. SKELETAL SYSTEM: No significant abnormality. IMPRESSION: 1. Hiatal hernia 2. Diverticulosis of the descending colon and sigmoid colon without convincing evidence of diverticulitis Signer Name: Fabricio Renee MD Signed: 05/18/2019 7:48 PM Workstation Name: [id number] Transcribed By: MELVIN Dictated By: Fabricio Renee MD Electronically Authenticated By: Fabricio Renee MD Signed Date/Time: 05/18/191947 DD/ 45 TD/TT: - Medical Decision Making This is a 53-year-old female with a history of chronic epigastric abdominal trauma who presented to the ED with acute exacerbation of epigastric abdominal pain with nausea and vomiting and lack of appetite for the last 2 days. In the ED, patient is alert and oriented 3 in destruction and distress. Patient has been evaluated extensively for this same complaint about 4 months ago and was given a referral to the GI physician but the patient states that she was unable to get an appointment in any of the GI physicians because the type of health insurance she has is not acceptable to most of these GI physician groups. Patient states that the last 2 days, the pain has been unbearable and that she has not been able to eat anything because of persistent pain and nausea and vomiting. In the ED, patient is alert and oriented 3 and appears to be in pain. Patient was treated for pain in the ED and also given antacids, and antiemetics. EKG shows normal sinus rhythm with ventricular rate of [address] or T-wave abnormalities. Lab test results were reviewed and are all nonactionable including initial and repeat troponin levels which are all nonactionable. Abdomen pelvis CT scan with contrast shows a moderate sized Hiatal hernia, and Diverticulosis of the descending colon and sigmoid colon without convincing evidence of diverticulitis. On reevaluation, patient's pain is well controlled with medications, and patient was discharged home on antiemetics, antacids and pain medications and advised to follow-up with [facility], the [employer] [facility] [employer] [facility] for further evaluation. Patient was also advised to return to the ED immediately if symptoms get worse. - Differential Diagnosis GERD; Gastritis; CAD; UTI; Gallstones/Cholecystitis; Pancreatitis Critical care attestation.: If time is entered above; I have spent that time in minutes in the direct care of this critically ill patient, excluding procedure time. ED Disposition Clinical Impression: Hiatal hernia with GERD, Recurrent epigastric abdominal pain, Nausea and vomiting in adult Disposition: DC-01 TO HOME OR SELFCARE Is pt being admited?: No Does the pt Need Aspirin: No Condition: Stable Instructions: Hiatal Hernia (ED), Acute Nausea and Vomiting (ED), Abdominal Pain (ED) Additional Instructions: Take medication with food, drink plenty of fluids and follow-up with the GI physician group called [employer] [facility] in 2-3 days for reevaluation. Contact [employer] [facility] office to schedule a follow-up appointment for further evaluation. Return to the ED immediately if symptoms get worse. Prescriptions: Dicyclomine [Bentyl] 20 mg PO Q6H PRN #30 tablet PRN Reason: Pain , Severe (7-10) Sucralfate [Carafate] 10 ml PO Q6HR #150 ml Famotidine [Pepcid] 20 mg PO Q12H #60 tablet traMADoL [Ultram 50 MG tab] 50 mg PO Q6HR PRN #12 tablet PRN Reason: Headache Ondansetron [Zofran ODT TAB] 8 mg PO Q8HR PRN #30 tab.rapdis PRN Reason: Nausea Referrals: ANIYAH BREWER MD [Staff Physician] - 3-5 Days Forms: Accompanied Note, Work/School Release Form(ED) Time of Disposition: 22:44 Print Language: HEBREW
== END 2019-05-18 22:55 | disposition home or self-care (01) ==
LOC: ED 16:37
DX: K44.9 Diaphragmatic hernia without obstruction or gangrene (principal); K21.9 Gastro-esophageal reflux disease without esophagitis; R11.2 Nausea with vomiting, unspecified
CPT/HCPCS: 36415; 74177; 80053; 81001; 83690; 84484; 85025; 93005; 93010; 96374; 99284; J2405; Q9967